=== PATIENT | female | born 1945 | race Caucasian/White ===

== ENCOUNTER 2017-03-31 08:00 | Outpatient (CLI) | payer SELFPAY ==
[~2017-03-31 08:00] MED LIST: ASPI1TAB2 PO; MULT-785 PO; NARA2.5T10 PO
== END 2017-03-31 23:59 | disposition home or self-care (01) ==
LOC: HW VAS 08:00
DX: Z00.00 Encounter for general adult medical examination without abnormal findings (principal)

== ENCOUNTER 2022-11-11 12:57 | Outpatient (CLI) | payer SELFPAY | END 2022-11-11 23:59 | disposition home or self-care (01) | LOC: VAS 12:57 | DX: Z13.6 Encounter for screening for cardiovascular disorders (principal) ==